=== PATIENT | male | born 1980 | race Caucasian/White ===

== ENCOUNTER 2019-08-17 20:06 | Emergency (ER) | payer OTHER ==
[~2019-08-17] VITALS: Ht 177.8 cm; Wt 120.2 kg
[~2019-08-17 20:06] MED LIST: Cipro500 MG PO; Flagyl500 MG PO; Norco 5-325 Ta1 EACH PO
[2019-08-17] MEDS ORDERED: KETO10 PO (20:50)
[2019-08-17] MEDS ORDERED: Norco 5-325 Ta1 EACH PO (20:50)
== END 2019-08-17 21:00 | disposition home or self-care (01) ==
LOC: ER 20:06
DX: S93.401A Sprain of unspecified ligament of right ankle, initial encounter (principal); F17.220 Nicotine dependence, chewing tobacco, uncomplicated; W22.8XXA Striking against or struck by other objects, initial encounter
CPT/HCPCS: 73610; 96372-59; 99283-25; A9270; J1885

== ENCOUNTER 2024-03-11 08:18 | Day surgery (SDC) | payer OTHER ==
[~2024-03-11] VITALS: Ht 177.8 cm; Wt 126.6 kg
[~2024-03-11 08:18] MED LIST changes: +FAMO20; +FAMO20 PO; +KETO10 PO; +LOSA50 PO; +Lactated Ringer's 1,000 ML IV SCH
[2024-03-11] MEDS ORDERED: LOSARTAN-HCTZ1 EAC5 PO (09:10)
[2024-03-11 09:17] VITALS: BP 153/102
[2024-03-11] MEDS ORDERED: propofoL 50 ML IV ONE (09:35)
--- NOTE | 2024-03-11 09:43 | NUR ---
03/11/24 0943 Robert Castro MONITOR INTACT WITH CONTINUOUS PULSE OXIMETRY, CONTINUOUS END TITAL CO2, AND INTERMITTENT BLOOD PRESSURE.AND EKG ANESTHESIA PER DR. HILLS
[2024-03-11 10:11] VITALS: BP 127/88
--- NOTE | 2024-03-11 10:29 | NUR ---
Discharge instructions reviewed with patient. Patient verbalizes understanding. Copy given to patient to take home. Patient up to Ambulate independently. Gait steady. Lungs clear T/O to Auscultation. Patient States Post-Procedure ride home has been arranged WITH SPOUSE. BELONGINGS RETURNED TO PT.
== END 2024-03-11 10:30 | disposition home or self-care (01) ==
LOC: ORSCMMR 08:18 → ORD 10:00 → ORSCMMR 10:30
PROVIDERS: Internal Medicine Gastroenterology
PROC: 0DBN8ZX Excision of Sigmoid Colon, Via Natural or Artificial Opening Endoscopic, Diagnostic (ICD-10-PCS; principal; 2024-03-11 10:00)
DX: K57.30 Diverticulosis of large intestine without perforation or abscess without bleeding (principal); K63.5 Polyp of colon; K64.8 Other hemorrhoids; Z86.0101 Personal history of adenomatous and serrated colon polyps; I10 Essential (primary) hypertension; E66.01 Morbid (severe) obesity due to excess calories; Z68.41 Body mass index [BMI] 40.0-44.9, adult; Z79.899 Other long term (current) drug therapy; Z87.891 Personal history of nicotine dependence
CPT/HCPCS: 88305; J2704; J7120